=== PATIENT | female | born 1945 | race Caucasian/White ===

== ENCOUNTER 2018-07-01 18:04 | Emergency (ER) | payer BC, MEDICARE, OTHER ==
[~2018-07-01] VITALS: Ht 160 cm; Wt 67.0 kg
[2018-07-01] MEDS ORDERED: LIDOCAINE-MPF 2%, 2ML ONE (19:13)
[2018-07-01 20:53] VITALS: BP 139/53
== END 2018-07-01 21:51 | disposition home or self-care (01) ==
LOC: ED 20:39
DX: Z45.2 Encounter for adjustment and management of vascular access device (principal); E11.9 Type 2 diabetes mellitus without complications; G20 Parkinson's disease
CPT/HCPCS: 36569; 76937; 77001; 99285; C1751; J3490

== ENCOUNTER 2018-07-07 07:10 | Inpatient (IN) | payer MEDICARE ==
[~2018-07-07] VITALS: Ht 160 cm; Wt 64.9 kg
[2018-07-07] MEDS ORDERED: SODIUM CHLORIDE 0.9% 1,000ML IVBOLUS ONE (07:30)
[2018-07-07] MEDS ORDERED: INSU100V8 SQ ×3 (07:31→09:05)
[2018-07-07] MEDS ORDERED: DONE5TAB7 PO (07:31)
[2018-07-07] MEDS ORDERED: SERT50TA PO (07:31)
[2018-07-07] MEDS ORDERED: METF500T9 PO (07:31)
[2018-07-07] MEDS ORDERED: PIPE3.375 IV (07:31)
[2018-07-07] MEDS ORDERED: VORI200T2 PO (07:31)
[2018-07-07] MEDS ORDERED: SITA100T PO (07:31)
[2018-07-07] MEDS ORDERED: SAFI50TA PO (07:31)
[2018-07-07] MEDS ORDERED: LISI-167 PO (07:31)
[2018-07-07] MEDS ORDERED: DOCU240C53 PO (07:31)
[2018-07-07] MEDS ORDERED: CARB1CAP PO (07:31)
[2018-07-07] MEDS ORDERED: AMAN100C7 PO (07:31)
[2018-07-07] MEDS ORDERED: PROP20TA PO (07:31)
[2018-07-07] MEDS ORDERED: ASPI-515 PO (07:31)
[2018-07-07] MEDS ORDERED: SENN-87 PO (07:31)
[2018-07-07] MEDS ORDERED: PRAV20TA2 PO (07:31)
[2018-07-07] MEDS ORDERED: INSU100V11 SQ (07:31)
[2018-07-07] MEDS ORDERED: PRAV40TA2 PO (07:31)
[2018-07-07] MEDS ORDERED: ROTI1PAT4 TD (07:31)
[2018-07-07] MEDS ORDERED: GLIP10TA13 PO (07:31)
[2018-07-07 08:15] LABS: ALBUMIN 2.7 g/dL (3.4-5.0); ANION GAP 7 mmol/L (5-15); CALCIUM 8.5 mg/dL (8.5-10.1); CHLORIDE 109 mmol/L (98-107); CREATININE 1.22 mg/dL (0.55-1.02)
[2018-07-07 08:34] LABS: BASOPHILS # (AUTO) 0.05 x10^3/uL (0-0.1); BASOPHILS % (AUTO) 1 % (0-1); EOSINOPHILS # (AUTO) 0.31 x10^3/uL (0-0.4); EOSINOPHILS % (AUTO) 4 % (1-7); LYMPHOCYTES # (AUTO) 1.64 x10^3/uL (1-3.4); LYMPHOCYTES % (AUTO) 19 % (22-44); MD NO; MEAN CORPUSCULAR HEMOGLOBIN 31.4 pg (27.0-34.8); MEAN CORPUSCULAR HGB CONC 33.1 g/dL (32.4-35.8); MONOCYTES # (AUTO) 0.66 x10^3/uL (0.2-0.8); MONOCYTES % (AUTO) 8 % (2-9); NEUTROPHILS # (AUTO) 6.11 x10^3/uL (1.8-6.8); NEUTROPHILS % (AUTO) 70 % (42-75); PLATELET COUNT 304 x10^3/uL (130-400); RED BLOOD COUNT 3.24 x10^6/uL (3.82-5.3); RED CELL DISTRIBUTION WIDTH 13.4 % (9.6-15.2)
[2018-07-07 08:48] LABS: CULTURE INDICATED? YES; MICROSCOPIC INDICATED
[2018-07-07] MEDS ORDERED: DOCU100C58 PO (09:05)
[2018-07-07] MEDS ORDERED: LACT1CAP35 PO (09:05)
[2018-07-07] MEDS ORDERED: PROP60TA PO (09:05)
[2018-07-07] MEDS ORDERED: TRAM50TA2 PO (09:05)
[2018-07-07] MEDS ORDERED: SERT100T5 PO (09:05)
[2018-07-07 09:18] LABS: MICROSCOPIC INDICATED
[2018-07-07 09:43] LABS: CULTURE INDICATED? YES
[2018-07-07] MEDS ORDERED: SODIUM CHLORIDE 0.9% 1,000 ML IV ONE (10:27)
[2018-07-07] MEDS ORDERED: CEFTRIAXONE 1,000 MG in SODIUM CHLORIDE 0.9% 50 ML IV ONE (10:30)
[2018-07-07] MEDS ORDERED: GENTAMICIN PER PHARMACY MC PRN ×2 (10:30→11:00)
[2018-07-07] MEDS ORDERED: SODIUM CHLORIDE FLUSH 10ML SYR IVF PRN (10:30)
[2018-07-07] MEDS ORDERED: INSULIN GLARGINE 100 UNITS/ML, PEN SQ-INSULIN SCH (11:00)
[2018-07-07] MEDS ORDERED: ONDANSETRON ODT 4 MG PO PRN (11:00)
[2018-07-07] MEDS ORDERED: PHARMACOKINETIC CONSULTATION MC ONE (11:00)
[2018-07-07] MEDS ORDERED: HEPARIN 5,000 UNITS/ML, 1ML SQ SCH (11:00)
[2018-07-07] MEDS ORDERED: GENTAMICIN 260 MG in SODIUM CHLORIDE 0.9% 100 ML IV ONE (11:00)
[2018-07-07] MEDS: INSULIN LISPRO 100 UNITS/ML, PEN SQ-INSULIN SCH ×3 (11:00→21:06)
[2018-07-07 11:21] VITALS: BP 169/77
[2018-07-07] MEDS ORDERED: PHARMACOKINETIC MONITORING MC PRN (11:30)
[2018-07-07] MEDS: CEFTRIAXONE 2 GM in SODIUM CHLORIDE 0.9% 50 ML IV SCH (13:33)
[2018-07-07] MEDS: SODIUM CHLORIDE 0.9% 1,000 ML IV SCH (13:33)
[2018-07-07 13:34] VITALS: BP 152/63
[2018-07-07] MEDS: ACETAMINOPHEN 325 MG TABLET PO PRN (15:08)
[2018-07-07] MEDS: CARBIDOPA HOMEMEDPO SCH ×2 (16:00→21:06)
[2018-07-07] MEDS: LEVODOPA HOMEMEDPO SCH ×2 (16:00→21:06)
[2018-07-07 18:47] VITALS: BP 175/76
[2018-07-07 19:49] VITALS: BP 147/78
[2018-07-07] MEDS: DONEPEZIL 5 MG TABLET PO SCH (21:05)
[2018-07-07] MEDS: PRAVASTATIN 20 MG TABLET PO SCH (21:05)
[2018-07-07] MEDS: ROTIGOTINE TD SCH (21:07)
[2018-07-07] MEDS: DOCUSATE 100 MG CAPSULE PO SCH (21:07)
[2018-07-08 01:32] VITALS: BP 160/81
[2018-07-08] MEDS: SODIUM CHLORIDE 0.9% 1,000 ML IV SCH ×2 (04:20→15:33)
[2018-07-08 04:41] LABS: BASOPHILS # (AUTO) 0.07 x10^3/uL (0-0.1); BASOPHILS % (AUTO) 1 % (0-1); EOSINOPHILS # (AUTO) 0.28 x10^3/uL (0-0.4); EOSINOPHILS % (AUTO) 4 % (1-7); LYMPHOCYTES % (AUTO) 30 % (22-44); MD NO; MEAN CORPUSCULAR HEMOGLOBIN 32.5 pg (27.0-34.8); MEAN CORPUSCULAR HGB CONC 34.4 g/dL (32.4-35.8); MEAN CORPUSCULAR VOLUME 94.3 fL (80-100); MEAN PLATELET VOLUME 7.9 fL (7.4-10.4); MONOCYTES # (AUTO) 0.56 x10^3/uL (0.2-0.8); MONOCYTES % (AUTO) 8 % (2-9); NEUTROPHILS # (AUTO) 3.97 x10^3/uL (1.8-6.8); NEUTROPHILS % (AUTO) 57 % (42-75); PLATELET COUNT 276 x10^3/uL (130-400); RED BLOOD COUNT 3.26 x10^6/uL (3.82-5.3); RED CELL DISTRIBUTION WIDTH 13.4 % (9.6-15.2)
[2018-07-08 04:47] LABS: ALBUMIN 2.8 g/dL (3.4-5.0); ANION GAP 7 mmol/L (5-15); CALCIUM 8.6 mg/dL (8.5-10.1); CHLORIDE 107 mmol/L (98-107); CREATININE 0.97 mg/dL (0.55-1.02)
[2018-07-08 04:50] LABS: ALKALINE PHOSPHATASE 76 U/L (45-117); BILIRUBIN,TOTAL 0.3 mg/dL (0.2-1.0)
[2018-07-08 04:59] LABS: ALANINE AMINOTRANSFERASE < 6 U/L (12-78)
[2018-07-08 07:07] VITALS: BP 171/91
[2018-07-08 07:54] VITALS: BP 153/86
[2018-07-08] MEDS: INSULIN LISPRO 100 UNITS/ML, PEN SQ-INSULIN SCH ×4 (07:55→21:32)
[2018-07-08] MEDS: POTASSIUM CHLORIDE 20 MEQ TAB.ER.PRT PO SCH ×2 (07:56→15:33)
[2018-07-08] MEDS: PROPRANOLOL 60 MG TABLET PO SCH (07:56)
[2018-07-08] MEDS: INSULIN GLARGINE 100 UNITS/ML, PEN SQ-INSULIN SCH (07:56)
[2018-07-08] MEDS: LACTOBACILLUS CHEW TABLET PO SCH (07:56)
[2018-07-08] MEDS: SERTRALINE 100MG TABLET PO SCH (07:56)
[2018-07-08] MEDS: LISINOPRIL 10 MG TABLET PO SCH (07:56)
[2018-07-08] MEDS: SAFINAMIDE MESYLATE HOMEMEDPO SCH (07:57)
[2018-07-08] MEDS: CARBIDOPA HOMEMEDPO SCH ×3 (07:57→21:30)
[2018-07-08] MEDS: LEVODOPA HOMEMEDPO SCH ×3 (07:57→21:30)
[2018-07-08] MEDS: DOCUSATE 100 MG CAPSULE PO SCH ×2 (07:59→21:00)
[2018-07-08] MEDS ORDERED: ASPIRIN 81 MG TABLET EC PO SCH (09:00)
[2018-07-08] MEDS: CEFTRIAXONE 2 GM in SODIUM CHLORIDE 0.9% 50 ML IV SCH (11:06)
[2018-07-08 12:54] VITALS: BP 150/80
[2018-07-08 17:23] LABS: BASOPHILS # (AUTO) 0.04 x10^3/uL (0-0.1); BASOPHILS % (AUTO) 0 % (0-1); EOSINOPHILS # (AUTO) 0.25 x10^3/uL (0-0.4); EOSINOPHILS % (AUTO) 3 % (1-7); LYMPHOCYTES # (AUTO) 1.98 x10^3/uL (1-3.4); LYMPHOCYTES % (AUTO) 23 % (22-44); MD NO; MEAN CORPUSCULAR HEMOGLOBIN 31.8 pg (27.0-34.8); MEAN CORPUSCULAR HGB CONC 33.5 g/dL (32.4-35.8); MEAN CORPUSCULAR VOLUME 94.8 fL (80-100); MEAN PLATELET VOLUME 7.7 fL (7.4-10.4); MONOCYTES # (AUTO) 0.63 x10^3/uL (0.2-0.8); MONOCYTES % (AUTO) 7 % (2-9); NEUTROPHILS # (AUTO) 5.63 x10^3/uL (1.8-6.8); NEUTROPHILS % (AUTO) 66 % (42-75); PLATELET COUNT 302 x10^3/uL (130-400); RED BLOOD COUNT 3.56 x10^6/uL (3.82-5.3); RED CELL DISTRIBUTION WIDTH 13.4 % (9.6-15.2)
[2018-07-08] MEDS ORDERED: CATHFLO-ALTEPLASE 2 MG/2 ML CATHFLUSH ONE (17:30)
[2018-07-08 19:14] VITALS: BP 146/78
[2018-07-08] MEDS: ROTIGOTINE TD SCH (21:30)
[2018-07-08] MEDS: PRAVASTATIN 20 MG TABLET PO SCH (21:31)
[2018-07-08] MEDS: DONEPEZIL 5 MG TABLET PO SCH (21:31)
[2018-07-09 02:30] VITALS: BP 128/78
[2018-07-09] MEDS ORDERED: GENTAMICIN 260 MG in SODIUM CHLORIDE 0.9% 100 ML IV SCH (03:00)
[2018-07-09 05:23] LABS: BASOPHILS # (AUTO) 0.05 x10^3/uL (0-0.1); BASOPHILS % (AUTO) 1 % (0-1); EOSINOPHILS # (AUTO) 0.31 x10^3/uL (0-0.4); EOSINOPHILS % (AUTO) 4 % (1-7); LYMPHOCYTES # (AUTO) 2.14 x10^3/uL (1-3.4); LYMPHOCYTES % (AUTO) 30 % (22-44); MD NO; MEAN CORPUSCULAR HEMOGLOBIN 32.1 pg (27.0-34.8); MEAN CORPUSCULAR HGB CONC 33.8 g/dL (32.4-35.8); MEAN CORPUSCULAR VOLUME 94.9 fL (80-100); MONOCYTES # (AUTO) 0.72 x10^3/uL (0.2-0.8); MONOCYTES % (AUTO) 10 % (2-9); NEUTROPHILS # (AUTO) 3.97 x10^3/uL (1.8-6.8); NEUTROPHILS % (AUTO) 55 % (42-75); PLATELET COUNT 279 x10^3/uL (130-400); RED BLOOD COUNT 3.29 x10^6/uL (3.82-5.3); RED CELL DISTRIBUTION WIDTH 13.3 % (9.6-15.2)
[2018-07-09 05:34] LABS: ALANINE AMINOTRANSFERASE 8 U/L (12-78); ALBUMIN 2.8 g/dL (3.4-5.0); ANION GAP 10 mmol/L (5-15); CALCIUM 8.6 mg/dL (8.5-10.1); CHLORIDE 106 mmol/L (98-107); CREATININE 0.89 mg/dL (0.55-1.02)
[2018-07-09 05:36] LABS: ALKALINE PHOSPHATASE 81 U/L (45-117); BILIRUBIN,TOTAL 0.3 mg/dL (0.2-1.0); TOTAL PROTEIN 6.8 g/dL (6.4-8.2)
[2018-07-09] MEDS: SODIUM CHLORIDE 0.9% 1,000 ML IV SCH ×2 (06:20→11:01)
[2018-07-09] MEDS ORDERED: PIPERACILLIN/TAZO/PMX 3.375GM 50 ML IV SCH (06:30)
[2018-07-09 07:00] VITALS: BP 148/83
[2018-07-09] MEDS: INSULIN LISPRO 100 UNITS/ML, PEN SQ-INSULIN SCH ×4 (08:28→20:41)
[2018-07-09] MEDS: LACTOBACILLUS CHEW TABLET PO SCH (08:29)
[2018-07-09] MEDS: POTASSIUM CHLORIDE 20 MEQ TAB.ER.PRT PO SCH ×2 (08:30→18:11)
[2018-07-09] MEDS: PROPRANOLOL 60 MG TABLET PO SCH (08:30)
[2018-07-09] MEDS: DOCUSATE 100 MG CAPSULE PO SCH ×2 (08:31→20:33)
[2018-07-09] MEDS: LISINOPRIL 10 MG TABLET PO SCH (08:32)
[2018-07-09] MEDS: SERTRALINE 100MG TABLET PO SCH (08:32)
[2018-07-09] MEDS: SAFINAMIDE MESYLATE HOMEMEDPO SCH (08:33)
[2018-07-09] MEDS: CARBIDOPA HOMEMEDPO SCH ×3 (08:33→20:33)
[2018-07-09] MEDS: LEVODOPA HOMEMEDPO SCH ×3 (08:33→20:33)
[2018-07-09] MEDS: INSULIN GLARGINE 100 UNITS/ML, PEN SQ-INSULIN SCH (08:33)
[2018-07-09 12:51] VITALS: BP 105/70
[2018-07-09] MEDS: PIPERACILLIN/TAZO/PMX 3.375GM 50 ML IV SCH ×2 (13:11→19:54)
[2018-07-09 18:41] VITALS: BP 132/69
[2018-07-09] MEDS: DONEPEZIL 5 MG TABLET PO SCH (20:33)
[2018-07-09] MEDS: ROTIGOTINE TD SCH (20:34)
[2018-07-09] MEDS: PRAVASTATIN 20 MG TABLET PO SCH (20:34)
[2018-07-10 01:00] VITALS: BP 129/65
[2018-07-10] MEDS: PIPERACILLIN/TAZO/PMX 3.375GM 50 ML IV SCH ×2 (04:15→12:26)
[2018-07-10 04:27] LABS: BASOPHILS # (AUTO) 0.08 x10^3/uL (0-0.1); BASOPHILS % (AUTO) 1 % (0-1); EOSINOPHILS # (AUTO) 0.37 x10^3/uL (0-0.4); EOSINOPHILS % (AUTO) 5 % (1-7); LYMPHOCYTES # (AUTO) 2.11 x10^3/uL (1-3.4); LYMPHOCYTES % (AUTO) 26 % (22-44); MD NO; MEAN CORPUSCULAR HEMOGLOBIN 31.8 pg (27.0-34.8); MEAN CORPUSCULAR HGB CONC 33.7 g/dL (32.4-35.8); MEAN CORPUSCULAR VOLUME 94.4 fL (80-100); MEAN PLATELET VOLUME 7.8 fL (7.4-10.4); MONOCYTES # (AUTO) 0.74 x10^3/uL (0.2-0.8); MONOCYTES % (AUTO) 9 % (2-9); NEUTROPHILS # (AUTO) 4.77 x10^3/uL (1.8-6.8); NEUTROPHILS % (AUTO) 59 % (42-75); PLATELET COUNT 197 x10^3/uL (130-400); RED BLOOD COUNT 3.24 x10^6/uL (3.82-5.3); RED CELL DISTRIBUTION WIDTH 13.4 % (9.6-15.2)
[2018-07-10 04:38] LABS: ALANINE AMINOTRANSFERASE 8 U/L (12-78); ALBUMIN 2.7 g/dL (3.4-5.0); ANION GAP 10 mmol/L (5-15); CALCIUM 8.5 mg/dL (8.5-10.1); CHLORIDE 105 mmol/L (98-107); CREATININE 0.92 mg/dL (0.55-1.02)
[2018-07-10 04:40] LABS: ALKALINE PHOSPHATASE 82 U/L (45-117); BILIRUBIN,TOTAL 0.3 mg/dL (0.2-1.0); TOTAL PROTEIN 6.7 g/dL (6.4-8.2)
[2018-07-10 08:04] VITALS: BP 112/74
[2018-07-10] MEDS: POTASSIUM CHLORIDE 20 MEQ TAB.ER.PRT PO SCH ×2 (09:06→17:33)
[2018-07-10] MEDS: INSULIN LISPRO 100 UNITS/ML, PEN SQ-INSULIN SCH ×4 (09:06→21:51)
[2018-07-10] MEDS: LACTOBACILLUS CHEW TABLET PO SCH (09:07)
[2018-07-10] MEDS: PROPRANOLOL 60 MG TABLET PO SCH (09:08)
[2018-07-10] MEDS: SERTRALINE 100MG TABLET PO SCH (09:08)
[2018-07-10] MEDS: LISINOPRIL 10 MG TABLET PO SCH (09:08)
[2018-07-10] MEDS: DOCUSATE 100 MG CAPSULE PO SCH ×2 (09:09→21:48)
[2018-07-10] MEDS: INSULIN GLARGINE 100 UNITS/ML, PEN SQ-INSULIN SCH (09:09)
[2018-07-10] MEDS: LEVODOPA HOMEMEDPO SCH ×3 (09:13→21:47)
[2018-07-10] MEDS: SAFINAMIDE MESYLATE HOMEMEDPO SCH (09:13)
[2018-07-10] MEDS: CARBIDOPA HOMEMEDPO SCH ×3 (09:13→21:47)
[2018-07-10 14:44] VITALS: BP 119/73
[2018-07-10] MEDS: CEFTRIAXONE 1,000 MG in SODIUM CHLORIDE 0.9% 50 ML IV SCH (17:33)
[2018-07-10] MEDS: SODIUM CHLORIDE 0.9% 1,000 ML IV SCH (17:33)
[2018-07-10 19:06] VITALS: BP 127/64
[2018-07-10] MEDS: DONEPEZIL 5 MG TABLET PO SCH (21:48)
[2018-07-10] MEDS: PRAVASTATIN 20 MG TABLET PO SCH (21:48)
[2018-07-10] MEDS: ROTIGOTINE TD SCH (21:54)
[2018-07-11 01:14] VITALS: BP 122/75
[2018-07-11 05:13] LABS: ALBUMIN 2.8 g/dL (3.4-5.0); ANION GAP 6 mmol/L (5-15); BASOPHILS # (AUTO) 0.05 x10^3/uL (0-0.1); BASOPHILS % (AUTO) 1 % (0-1); CALCIUM 8.9 mg/dL (8.5-10.1); CHLORIDE 108 mmol/L (98-107); EOSINOPHILS # (AUTO) 0.35 x10^3/uL (0-0.4); EOSINOPHILS % (AUTO) 4 % (1-7); LYMPHOCYTES # (AUTO) 1.78 x10^3/uL (1-3.4); LYMPHOCYTES % (AUTO) 18 % (22-44); MD NO; MEAN CORPUSCULAR HEMOGLOBIN 31.7 pg (27.0-34.8); MEAN CORPUSCULAR HGB CONC 33.7 g/dL (32.4-35.8); MEAN CORPUSCULAR VOLUME 94.3 fL (80-100); MEAN PLATELET VOLUME 8.1 fL (7.4-10.4); MONOCYTES # (AUTO) 0.84 x10^3/uL (0.2-0.8); MONOCYTES % (AUTO) 9 % (2-9); NEUTROPHILS # (AUTO) 6.71 x10^3/uL (1.8-6.8); NEUTROPHILS % (AUTO) 69 % (42-75); PLATELET COUNT 267 x10^3/uL (130-400); RED CELL DISTRIBUTION WIDTH 13.4 % (9.6-15.2)
[2018-07-11] MEDS: SODIUM CHLORIDE 0.9% 1,000 ML IV SCH ×2 (05:32→17:19)
[2018-07-11 06:46] VITALS: BP 115/65
[2018-07-11] MEDS: INSULIN LISPRO 100 UNITS/ML, PEN SQ-INSULIN SCH ×4 (08:54→20:38)
[2018-07-11] MEDS: POTASSIUM CHLORIDE 20 MEQ TAB.ER.PRT PO SCH ×2 (08:54→17:17)
[2018-07-11] MEDS: SERTRALINE 100MG TABLET PO SCH (08:55)
[2018-07-11] MEDS: PROPRANOLOL 60 MG TABLET PO SCH (08:55)
[2018-07-11] MEDS: LACTOBACILLUS CHEW TABLET PO SCH (08:55)
[2018-07-11] MEDS: DOCUSATE 100 MG CAPSULE PO SCH ×2 (08:56→20:40)
[2018-07-11] MEDS: INSULIN GLARGINE 100 UNITS/ML, PEN SQ-INSULIN SCH (08:56)
[2018-07-11] MEDS: LEVODOPA HOMEMEDPO SCH ×3 (08:57→20:39)
[2018-07-11] MEDS: SAFINAMIDE MESYLATE HOMEMEDPO SCH (08:57)
[2018-07-11] MEDS: CARBIDOPA HOMEMEDPO SCH ×3 (08:57→20:39)
[2018-07-11] MEDS: LISINOPRIL 10 MG TABLET PO SCH (08:59)
[2018-07-11 13:40] VITALS: BP 104/68
[2018-07-11] MEDS: CEFTRIAXONE 1,000 MG in SODIUM CHLORIDE 0.9% 50 ML IV SCH (17:17)
[2018-07-11 18:49] VITALS: BP 144/86
[2018-07-11] MEDS: PRAVASTATIN 20 MG TABLET PO SCH (20:38)
[2018-07-11] MEDS: DONEPEZIL 5 MG TABLET PO SCH (20:38)
[2018-07-11] MEDS: ROTIGOTINE TD SCH (20:39)
[2018-07-12 01:39] VITALS: BP 128/74
[2018-07-12] MEDS: ACETAMINOPHEN 325 MG TABLET PO PRN (03:39)
[2018-07-12] MEDS: SODIUM CHLORIDE 0.9% 1,000 ML IV SCH (08:03)
[2018-07-12] MEDS: CARBIDOPA HOMEMEDPO SCH (08:04)
[2018-07-12] MEDS: LEVODOPA HOMEMEDPO SCH (08:04)
[2018-07-12] MEDS: POTASSIUM CHLORIDE 20 MEQ TAB.ER.PRT PO SCH (08:05)
[2018-07-12] MEDS: SAFINAMIDE MESYLATE HOMEMEDPO SCH (08:05)
[2018-07-12] MEDS: DOCUSATE 100 MG CAPSULE PO SCH (08:05)
[2018-07-12] MEDS: PROPRANOLOL 60 MG TABLET PO SCH (08:06)
[2018-07-12] MEDS: SERTRALINE 100MG TABLET PO SCH (08:06)
[2018-07-12] MEDS: LACTOBACILLUS CHEW TABLET PO SCH (08:06)
[2018-07-12] MEDS: LISINOPRIL 10 MG TABLET PO SCH (08:06)
[2018-07-12] MEDS: INSULIN LISPRO 100 UNITS/ML, PEN SQ-INSULIN SCH ×2 (08:07→11:35)
[2018-07-12] MEDS: INSULIN GLARGINE 100 UNITS/ML, PEN SQ-INSULIN SCH (08:07)
[2018-07-12 08:41] LABS: BASOPHILS # (AUTO) 0.04 x10^3/uL (0-0.1); BASOPHILS % (AUTO) 1 % (0-1); EOSINOPHILS % (AUTO) 5 % (1-7); LYMPHOCYTES # (AUTO) 1.96 x10^3/uL (1-3.4); LYMPHOCYTES % (AUTO) 30 % (22-44); MD NO; MEAN CORPUSCULAR HEMOGLOBIN 32.4 pg (27.0-34.8); MEAN CORPUSCULAR HGB CONC 34.4 g/dL (32.4-35.8); MONOCYTES # (AUTO) 0.64 x10^3/uL (0.2-0.8); MONOCYTES % (AUTO) 10 % (2-9); NEUTROPHILS % (AUTO) 55 % (42-75); PLATELET COUNT 247 x10^3/uL (130-400); RED BLOOD COUNT 3.21 x10^6/uL (3.82-5.3); RED CELL DISTRIBUTION WIDTH 13.7 % (9.6-15.2)
[2018-07-12 08:44] VITALS: BP 108/69
[2018-07-12 08:46] LABS: ALANINE AMINOTRANSFERASE 8 U/L (12-78); ALBUMIN 2.7 g/dL (3.4-5.0); ANION GAP 7 mmol/L (5-15); CALCIUM 8.6 mg/dL (8.5-10.1); CHLORIDE 107 mmol/L (98-107)
[2018-07-12 08:48] LABS: ALKALINE PHOSPHATASE 93 U/L (45-117); BILIRUBIN,TOTAL 0.2 mg/dL (0.2-1.0); TOTAL PROTEIN 6.7 g/dL (6.4-8.2)
[2018-07-12] MEDS ORDERED: CEFTRIAXONE 1,000 MG in SODIUM CHLORIDE 0.9% 50 ML IV SCH (10:30)
[2018-07-12 14:02] VITALS: BP 113/72
[2018-07-12] MEDS ORDERED: CEFD300C37 PO (14:18)
[2018-07-12] MEDS ORDERED: FLUCONAZOLE 200 MG/100 ML 100 ML IV SCH (15:00)
[2018-07-12] MEDS ORDERED: FLUCONAZOLE 200 MG TABLET PO STA (15:29)
[2018-07-12] MEDS ORDERED: FLUCONAZOLE 200 MG TABLET ONE (15:35)
[2018-07-12] MEDS ORDERED: FLUCONAZOLE 200 MG TABLET PO ONE (16:00)
[2018-07-12] MEDS ORDERED: CEFT1FRO2 IV (16:00)
== END 2018-07-12 16:20 | DRG 698 ==
LOC: ED 08:47 → EDIP 10:27 → 3NW 11:06 → 3NE 07-09 14:13
PROVIDERS: ADMIT Internal Medicine; ATTEND Internal Medicine
PROC: 0T9B70Z Drainage of Bladder with Drainage Device, Via Natural or Artificial Opening (ICD-10-PCS; principal; 2018-07-07)
DX: T83.512A Infection and inflammatory reaction due to nephrostomy catheter, initial encounter (principal); N17.0 Acute kidney failure with tubular necrosis; N30.01 Acute cystitis with hematuria; E44.0 Moderate protein-calorie malnutrition; N12 Tubulo-interstitial nephritis, not specified as acute or chronic; B96.89 Other specified bacterial agents as the cause of diseases classified elsewhere; D64.9 Anemia, unspecified; G20 Parkinson's disease; I10 Essential (primary) hypertension; Z79.4 Long term (current) use of insulin; E10.65 Type 1 diabetes mellitus with hyperglycemia; E78.5 Hyperlipidemia, unspecified; E87.6 Hypokalemia; F32.9 Major depressive disorder, single episode, unspecified; Z87.442 Personal history of urinary calculi; Z87.440 Personal history of urinary (tract) infections; Z90.710 Acquired absence of both cervix and uterus; Z96.641 Presence of right artificial hip joint; Z68.25 Body mass index [BMI] 25.0-25.9, adult; Z88.6 Allergy status to analgesic agent; Z88.1 Allergy status to other antibiotic agents; W01.0XXA Fall on same level from slipping, tripping and stumbling without subsequent striking against object, initial encounter; Y93.89 Activity, other specified; Y92.89 Other specified places as the place of occurrence of the external cause; Y99.8 Other external cause status
CPT/HCPCS: 36415; 71045; 76770; 80048; 80053; 80170; 81001; 82040; 82962; 83605; 83735; 84100; 84145; 85025; 87040; 87086; 87106; 96361; 96374; 96375; 99285; G0378; J0696; J2543; J2997; J1580; J1815; J7030